=== PATIENT | male | born 1930 | race Two or more races ===

== ENCOUNTER 2017-04-28 15:15 | Outpatient (CLI) | payer MEDICARE | END 2017-04-28 23:59 | disposition home or self-care (01) | LOC: WOU 15:15 → EDBD 15:15 → WOU 23:59 | PROVIDERS: ATTEND Podiatrist Foot & Ankle Surgery | DX: B35.1 Tinea unguium (principal); B35.3 Tinea pedis; L81.9 Disorder of pigmentation, unspecified; Z80.0 Family history of malignant neoplasm of digestive organs; Z85.49 Personal history of malignant neoplasm of other male genital organs; Z79.82 Long term (current) use of aspirin; Z79.899 Other long term (current) drug therapy; Z87.891 Personal history of nicotine dependence; I10 Essential (primary) hypertension; L98.8 Other specified disorders of the skin and subcutaneous tissue | CPT/HCPCS: 87102; G0463 ==

== ENCOUNTER 2017-05-12 10:06 | Inpatient (IN) | payer MEDICARE ==
[~2017-05-12] VITALS: Ht 172.7 cm; Wt 77.1 kg
--- NOTE | 2017-05-12 10:20 | NUR ---
PT BIB DTR FOR MULTIPLE COMPLAINTS- "NOT FEELING WELL". VSS. SEEN BY MD FOR EVAL. SAFETY AND COMFORT MEASURES PROVIDED. WILL MONITOR.
[2017-05-12] MEDS ORDERED: IV NS 0.9% 500 ML BAG IV ONE (10:30)
[2017-05-12 10:43] LABS: BASOPHILS % (AUTO) 0.7 % (0.0-2.0); EOSINOPHILS # (AUTO) 0.1 /CMM (0.0-0.7); EOSINOPHILS % (AUTO) 1.8 % (0.0-6.0); HEMATOCRIT 46 % (39-51); LYMPHOCYTES # (AUTO) 1.1 /CMM (0.8-4.8); LYMPHOCYTES % (AUTO) 21.5 % (20.0-44.0); MEAN CORPUSCULAR HEMOGLOBIN 32 PG (26.0-33.0); MEAN CORPUSCULAR HGB CONC 35 g/dl (31.0-36.0); MEAN CORPUSCULAR VOLUME 94 fL (80-96); MONOCYTES # (AUTO) 0.7 /CMM (0.1-1.30); MONOCYTES % (AUTO) 12.9 % (2.0-12.0); NEUTROPHILS # (AUTO) 3.3 /CMM (1.8-8.9); NEUTROPHILS % (AUTO) 63.1 % (43.0-81.0); PLATELET COUNT (AUTO) 89 /CMM (150-450); RDW COEFFICIENT OF VARIATION 12.4 (11.5-15.0); RED BLOOD CELL COUNT(AUTO) 4.95 MIL/uL (4.5-6.0); WHITE BLOOD COUNT (AUTO) 5.2 K/uL (4.3-11.0)
[2017-05-12 10:44] LABS: BILIRUBIN,URINE SMALL (NEGATIVE); BLOOD, URINE Trace-intact Ery/uL (NEGATIVE); KETONES,URINE Trace (NEGATIVE); LEUKOCYTE ESTERASE ,URINE Negative (NEGATIVE); NITRITE, URINE Negative (NEGATIVE); PROTEIN,URINE 100 mg/dl (NEGATIVE); UGLUCOSE Negative (NEGATIVE)
[2017-05-12 10:46] LABS: APPEARANCE,URINE Hazy (CLEAR); COLOR,URINE Dark Yellow (YELLOW)
--- NOTE | 2017-05-12 10:47 | NUR ---
PT TAKEN TO CT.
[2017-05-12] MEDS ORDERED: ASPI81TA2 PO (10:49)
[2017-05-12] MEDS ORDERED: TERB250T4 PO (10:49)
[2017-05-12] MEDS ORDERED: MULT-1168 PO (10:49)
[2017-05-12] MEDS ORDERED: FENO160T PO (10:49)
[2017-05-12] MEDS ORDERED: ATEN50TA PO (10:49)
[2017-05-12 10:52] LABS: CALCIUM, SERUM 8.7 mg/dL (8.5-10.1); CARBON DIOXIDE 29 mmol/L (21-32); CHLORIDE 96 mmol/L (98-107); CREATININE 1.6 mg/dL (0.6-1.3); GLUCOSE 130 mg/dL (74-106); POTASSIUM 4.2 mmol/L (3.5-5.1); SODIUM SERUM 131 mmol/L (136-145); UREA NITROGEN, BLOOD 23 mg/dL (7-18)
[2017-05-12 10:55] LABS: BACTERIA,URINE None seen /HPF (None Seen); SQUAMOUS EPITHELIAL CELL,UR Few /HPF (None Seen); WBC,URINE 0-2 /HPF (0-3)
[2017-05-12 10:56] LABS: INR 1.02 (0.87-1.13); PROTHROMBIN TIME 10.6 SECS (9.5-12.7)
[2017-05-12 10:59] LABS: ALANINE AMINOTRANSFERASE 34 U/L (12-78); ALKALINE PHOSPHATASE 38 U/L (46-116); ASPARTATE AMINOTRANSFERASE 38 U/L (15-37); BILIRUBIN,DIRECT 0.3 mg/dL (0.0-0.2); TOTAL PROTEIN, SERUM 8.3 g/dL (6.4-8.2)
[2017-05-12] MEDS ORDERED: ONDANSETRON HCL/PF 4 MG/2 ML VIAL ONE (11:04)
--- NOTE | 2017-05-12 11:10 | NUR ---
PT NOTED VOMITTING- RECEIVED VERBAL ORDERS FOR ZOFRAN 4MG IVP FROM DR. MARTINO. ORDERS CARRIED OUT.
[2017-05-12] MEDS ORDERED: ZOLPIDEM TARTRATE 5 MG TABLET PO PRN (12:00)
[2017-05-12] MEDS ORDERED: BLOOD SUGAR DIAGNOSTIC 1 EACH STRIP IN SCH (12:00)
[2017-05-12] MEDS ORDERED: ACETAMINOPHEN 325 MG TABLET PO PRN (12:00)
[2017-05-12] MEDS ORDERED: Z GUARD REMEDY 2 OZ OINT TP PRN (12:00)
[2017-05-12] MEDS ORDERED: ONDANSETRON HCL/PF 4 MG/2 ML VIAL IVP PRN (12:00)
[2017-05-12] MEDS ORDERED: MAG HYDROX/AL HYDROX/SIMETH 30 ML UDC PO PRN (12:00)
[2017-05-12] MEDS ORDERED: MAGNESIUM HYDROXIDE 30 ML UDC PO PRN (12:00)
[2017-05-12] MEDS ORDERED: HYDROCODONE/APAP 5/325MG 1 EACH TABLET PO PRN (12:00)
--- NOTE | 2017-05-12 12:19 | NUR ---
REPORT GIVEN TO MAURICIO KING FOR TELE 108.
--- NOTE | 2017-05-12 12:25 | NUR ---
ECG AT BS.
[2017-05-12] MEDS ORDERED: ONDANSETRON HCL/PF - ER 4 MG/2 ML VIAL IV ONE (12:30)
--- NOTE | 2017-05-12 13:20 | NUR ---
RN ADMITTING NOTES: REC'D REPORT FROM OZZY STEINBERG RN. PT TRANSFERRED TO ROOM 108 VIA RNEY ACCOMPANIED BY RN, WHISKEY REGAUGER AND DTR. ROUTINE ASSESSMENT DONE. PT PLACED ON TELEMONITOR, SR. WOUND PHOTOS TAKEN AND PLACED IN CHART. WOUND CONSULT ORDERED. PT ORIENTED TO ROOM. PT ON ROOM AIR, NO SOB. HAS L AC G20, SL, FLUSHING WELL, NO S/SX OF INFECTION/ INFILTRATION NOTED. NEURO ASSESSMENT DONE FOR POSS TIA PER REPORT FROM ER. NO NOTED WEAKNESS. GCS 15. PROVIDED COMFORT AND SAFETY MEASURES. BED KEPT LOW & IN LOCKED POS. CALL LIGHT PLACED W/IN REACH. BELONGINGS CHECKED DONE BY WHISKEY REGAUGER, PER DTR SHE WILL TAKE IT HOME. WILL CONTINUE TO MONITOR AND ATTEND PT'S NEEDS.
[2017-05-12 14:00] VITALS: BP 117/60
[2017-05-12] MEDS: BLOOD SUGAR DIAGNOSTIC 1 EACH STRIP IN SCH ×3 (14:16→23:00)
[2017-05-12] MEDS: Fenofibrate 48 MG TABLET PO SCH (14:17)
[2017-05-12] MEDS: ENOXAPARIN SODIUM 30 MG/0.3 ML DISP.SYRIN SQ SCH (14:20)
--- NOTE | 2017-05-12 14:58 | NUR ---
Social Service consult requested by Justus Washington MD, regarding Transient Ischemic Attack. Patient was admitted to ER for TIA. tiller worker met with patient (pts daughter was present). SW assessed for pt level of functioning. Pt reported feeling "fine." Pt is oriented xs 4. Pts daughter informed Executive Assistant To President that she brought pt in to the ER due to pt reporting feeling dizzy and disoriented which started the previous night. SW assessed for pt needs which pt/daughter stated, "Everything is fine, we don't need anything." Pts daughter reported that she would be caring for pt upon discharge.
[2017-05-12 15:10] LABS: THYROID STIMULATING HORMONE 1.372 uIU/mL (0.358-3.74)
[2017-05-12 15:11] LABS: ALANINE AMINOTRANSFERASE 38 U/L (12-78); ALKALINE PHOSPHATASE 39 U/L (46-116); ASPARTATE AMINOTRANSFERASE 45 U/L (15-37); B-TYPE NATRIURETIC PEPTIDE 215 PG/ML (0-125); CALCIUM, SERUM 9.1 mg/dL (8.5-10.1); CARBON DIOXIDE 26 mmol/L (21-32); CHLORIDE 99 mmol/L (98-107); CREATININE 1.7 mg/dL (0.6-1.3); GLUCOSE 130 mg/dL (74-106); POTASSIUM 4.5 mmol/L (3.5-5.1); SODIUM SERUM 136 mmol/L (136-145); TOTAL PROTEIN, SERUM 8.5 g/dL (6.4-8.2); UREA NITROGEN, BLOOD 23 mg/dL (7-18)
[2017-05-12] MEDS: IV NS 0.9% 1,000 ML IV PRN (15:41)
[2017-05-12 16:00] VITALS: BP 115/68
--- NOTE | 2017-05-12 18:37 | NUR ---
RN CLOSING NOTES: NO ACUTE CHANGES NOTED W/IN SHIFT, NO WEAKNESS/ NEURODEFICITS NOTED. PT NOT IN ANY DISTRESS, TOLERATED ROOM AIR, DENIES ANY DISCOMFORT/PAIN/WEAKNESS. ON TELEMONITOR, STILL SR. L AC G20 PL KEPT PATENT & INTACT W/ NO S/SX OF INFECTION/INFILTRATION NOTED. PT KEPT WELL RESTED. NEEDS ATTENDED. CALL LIGHT PLACED W/IN REACH. BED ALARM KEPT ON. PT REMINDED TO CALL RN IF NEEDS ASSISTANCE W/ VERBALIZATION OF UNDERSTANDING. WILL ENDORSE TO PM RN FOR TAM.
[2017-05-12 20:00] VITALS: BP 121/71
--- NOTE | 2017-05-12 20:00 | NUR ---
TELERN FULLY AWAKE, RESTING QUIETLY. NO COMPLAINTS MADE, SAFETY PRECAUTIONS EMPHASIZED, WELL UNDERSTOOD. CLOSELY MONITORED.
--- NOTE | 2017-05-12 23:46 | NUR ---
TELERN BS WAS 94
[2017-05-13] VITALS: BP 123/71
--- NOTE | 2017-05-13 01:23 | NUR ---
TELERN NAUSEATED, ADMINISTERED ZOFRAN 4MG IVP ORDERED.
[2017-05-13 04:00] VITALS: BP 111/51
[2017-05-13] MEDS: IV NS 0.9% 1,000 ML IV PRN (05:52)
[2017-05-13 06:37] LABS: BASOPHILS % (AUTO) 0.3 % (0.0-2.0); EOSINOPHILS # (AUTO) 0.1 /CMM (0.0-0.7); EOSINOPHILS % (AUTO) 2.8 % (0.0-6.0); HEMATOCRIT 43 % (39-51); HEMOGLOBIN 14.9 g/dL (13.5-17.5); LYMPHOCYTES # (AUTO) 1.5 /CMM (0.8-4.8); LYMPHOCYTES % (AUTO) 27.3 % (20.0-44.0); MEAN CORPUSCULAR HEMOGLOBIN 33 PG (26.0-33.0); MEAN CORPUSCULAR HGB CONC 35 g/dl (31.0-36.0); MEAN CORPUSCULAR VOLUME 94 fL (80-96); MONOCYTES # (AUTO) 0.7 /CMM (0.1-1.30); MONOCYTES % (AUTO) 12.8 % (2.0-12.0); NEUTROPHILS % (AUTO) 56.8 % (43.0-81.0); PLATELET COUNT (AUTO) 79 /CMM (150-450); RDW COEFFICIENT OF VARIATION 13.3 (11.5-15.0); RED BLOOD CELL COUNT(AUTO) 4.53 MIL/uL (4.5-6.0); WHITE BLOOD COUNT (AUTO) 5.3 K/uL (4.3-11.0)
[2017-05-13 06:48] LABS: CHOLESTEROL 123 mg/dL (<200); HDL CHOLESTEROL 30 mg/dL (40-60); LDL 73 mg/dL (0-99); TRIGLYCERIDES 126 mg/dL (30-150)
[2017-05-13 06:51] LABS: INR 1.15 (0.87-1.13)
--- NOTE | 2017-05-13 06:58 | NUR ---
TELERN NO NEEDS MADE, PRESENT IVF INFUSING WELL.
[2017-05-13 06:59] LABS: CALCIUM, SERUM 8.4 mg/dL (8.5-10.1); CARBON DIOXIDE 23 mmol/L (21-32); CHLORIDE 103 mmol/L (98-107); CREATININE 1.3 mg/dL (0.6-1.3); GLUCOSE 101 mg/dL (74-106); SODIUM SERUM 136 mmol/L (136-145); UREA NITROGEN, BLOOD 20 mg/dL (7-18)
[2017-05-13 07:29] LABS: BAND % (MANUAL) 1 % (0.0-5.0); EOSINOPHILS % (MANUAL) 2 % (0-4); LYMPHOCYTES % (MANUAL) 24 % (16-48); MONOCYTES % (MANUAL) 14 % (0-11.0); NEUTROPHILS % (MANUAL) 59 (42-76)
[2017-05-13 08:00] VITALS: BP 109/62
[2017-05-13] MEDS: BLOOD SUGAR DIAGNOSTIC 1 EACH STRIP IN SCH ×2 (08:10→11:56)
[2017-05-13] MEDS: Fenofibrate 48 MG TABLET PO SCH (08:11)
[2017-05-13] MEDS ORDERED: TERBINAFINE HCL 250 MG TABLET PO SCH (09:00)
[2017-05-13] MEDS ORDERED: ASPIRIN 81 MG TAB.CHEW PO SCH (09:00)
[2017-05-13] MEDS ORDERED: ATENOLOL 50 MG TABLET PO SCH (09:00)
[2017-05-13] MEDS ORDERED: MULTIVITAMINS,THERAGRAN 1 UDTAB TABLET PO SCH (09:00)
[2017-05-13] MEDS: ENOXAPARIN SODIUM 30 MG/0.3 ML DISP.SYRIN SQ SCH (11:55)
[2017-05-13 12:00] VITALS: BP 105/60
--- NOTE | 2017-05-13 14:30 | NUR ---
DISCHARGE NOTE DISCUSSED WITH DAUGHTER AT LENGTH. NO NEW PRESCRIPTIONS. DAUGHTER AND PATIENT VERBALIZED UNDERSTANDING TO FOLLOW UP CARE WITH PCP TO PREVENT FURTHER COMPLICATIONS AND ASSESS SKIN ON BL FEET, NO OPEN WOUNDS- PHOTOS IN CHART. NO NEW SKIN BREAK DOWN. BL IV REMOVED. NO ACTIVE BLEEDING. DAUGHTER SAID PATIENT RECEIVED PNEUMO VACCINE IN THE PAST ALREADY, UNKNOWN WHEN. DECLINED FLU SHOT AFTER EDUCATION PROVIDED. SAID MAY RECEIVE ELSEWHERE. BELONGINGS LIST SIGNED AND CONFIRMED. WRIST BRAND REMOVED. TELE BOX REMOVED. VSS. PATIENT AMBULATED WITH ASSISTANCE, STEADY. D/C DOCUMENTS SIGNED. WHEELED OUT WITH WHEEL CHAIR.
== END 2017-05-13 15:00 | disposition home or self-care (01) | DRG 682 ==
LOC: ER 10:08 → TELE1 12:08
PROVIDERS: ADMIT Internal Medicine; ATTEND Internal Medicine
DX: N17.0 Acute kidney failure with tubular necrosis (principal); G93.41 Metabolic encephalopathy; E86.1 Hypovolemia; C60.9 Malignant neoplasm of penis, unspecified; E87.1 Hypo-osmolality and hyponatremia; R47.01 Aphasia; E78.5 Hyperlipidemia, unspecified; I25.10 Atherosclerotic heart disease of native coronary artery without angina pectoris; I12.9 Hypertensive chronic kidney disease with stage 1 through stage 4 chronic kidney disease, or unspecified chronic kidney disease; K52.9 Noninfective gastroenteritis and colitis, unspecified; Z79.82 Long term (current) use of aspirin; N18.9 Chronic kidney disease, unspecified
CPT/HCPCS: 36415; 70450-TC; 71010-TC; 80048-TC; 80053-TC; 80061-TC; 80076-TC; 81000-TC; 82962-TC; 83605-TC; 83735-TC; 83880; 84100-TC; 84443-TC; 84484-TC; 85025-TC; 85652-TC; 85730-TC; 87040-TC; 87086-TC; 92611-TC; 93307-TC; 93880-TC; A4606; J1650; J2405; J7030; J7040; Z7610

== ENCOUNTER 2017-05-30 11:00 | Outpatient (CLI) | payer MEDICARE ==
[~2017-05-30 11:00] MED LIST: ASPI81TA2 PO; ATEN50TA PO; FENO160T PO; MULT-1168 PO; TERB250T4 PO
== END 2017-05-30 23:59 | disposition home or self-care (01) ==
LOC: WOU 11:00
PROVIDERS: ATTEND Podiatrist Foot & Ankle Surgery
DX: B35.1 Tinea unguium (principal); B35.3 Tinea pedis; B37.2 Candidiasis of skin and nail
CPT/HCPCS: A6402; G0463

== ENCOUNTER 2017-06-04 06:14 | Emergency (ER) | payer MEDICARE ==
[~2017-06-04] VITALS: Ht 172.7 cm; Wt 72.6 kg
--- NOTE | 2017-06-04 06:20 | NUR ---
TO BED 2 AN 87 YO MALE PT BIBA#878 FROM HOME, PT C/O RIGHT LEG PAIN X 1 HOUR. NAD NOTED. VSS. PATIENT IS ALERT AND RESPONSIVE. ABLE TO MOVE CHLOE LOWER EXTREMITIES. PATIENT WEARING COMPRESSION STOCKINGS. S/P CHLOE LYMPH NODE REMOVAL. CHLOE YAQUELIN DRAIN WITH MIN BLOODY DRAINAGE, ON NEG PRESSURE. GOWNED. DR BARNEY AT BEDSIDE EVALUATING PATIENT. DAUGHTER AT BEDSIDE.
--- NOTE | 2017-06-04 07:07 | NUR ---
ENDORSED CARE TO DUY COLEMAN FOR TAM.
[2017-06-04 07:18] VITALS: BP 122/67
--- NOTE | 2017-06-04 07:19 | NUR ---
Recieved report from Summer KING. Alert and oriented. NAD. waiting for duplex ultrasound. VSS rr even and unlabored. will continue to monitor
--- NOTE | 2017-06-04 07:57 | NUR ---
Ultrasound at bedside.
== END 2017-06-04 08:14 | disposition home or self-care (01) ==
LOC: ER 06:21
DX: G89.18 Other acute postprocedural pain (principal); M79.674 Pain in right toe(s); C44.90 Unspecified malignant neoplasm of skin, unspecified; I10 Essential (primary) hypertension; I25.10 Atherosclerotic heart disease of native coronary artery without angina pectoris; Z79.82 Long term (current) use of aspirin; Z98.890 Other specified postprocedural states
CPT/HCPCS: 93970; 99284; A4606; Z7610

== ENCOUNTER 2017-06-28 10:15 | Outpatient (CLI) | payer MEDICARE ==
[~2017-06-28 10:15] MED LIST changes: +ASPI-1169 PO; -ASPI81TA2 PO
== END 2017-06-28 23:59 | disposition home or self-care (01) ==
LOC: WOU 10:15
PROVIDERS: ATTEND Podiatrist Foot & Ankle Surgery
DX: B35.3 Tinea pedis (principal); B35.1 Tinea unguium; Z85.49 Personal history of malignant neoplasm of other male genital organs; L81.9 Disorder of pigmentation, unspecified; L85.3 Xerosis cutis; I10 Essential (primary) hypertension; M79.675 Pain in left toe(s); M79.674 Pain in right toe(s)
CPT/HCPCS: A6402 ×2; G0463

== ENCOUNTER 2017-08-08 14:15 | Outpatient (CLI) | payer MEDICARE | END 2017-08-08 23:59 | disposition home or self-care (01) | LOC: WOU 14:15 | PROVIDERS: ATTEND Podiatrist Foot & Ankle Surgery | PROC: 0HBNXZX Excision of Left Foot Skin, External Approach, Diagnostic (ICD-10-PCS; principal; 2017-08-08) | DX: L98.9 Disorder of the skin and subcutaneous tissue, unspecified (principal); B35.1 Tinea unguium; B35.3 Tinea pedis; R61 Generalized hyperhidrosis; L81.9 Disorder of pigmentation, unspecified | CPT/HCPCS: 11100; A6402; J3490 ==

== ENCOUNTER 2017-08-15 11:00 | Outpatient (CLI) | payer MEDICARE | END 2017-08-15 23:59 | disposition home or self-care (01) | LOC: WOU 11:00 | PROVIDERS: ATTEND Podiatrist Foot & Ankle Surgery | DX: Z48.02 Encounter for removal of sutures (principal); L98.8 Other specified disorders of the skin and subcutaneous tissue; B35.1 Tinea unguium | CPT/HCPCS: A6402; G0463 ==